=== PATIENT | female | born 1960 | race Caucasian/White ===

== ENCOUNTER 2018-06-09 12:59 | Inpatient (IN) | payer OTHER ==
[~2018-06-09] VITALS: Ht 149.9 cm; Wt 73.7 kg
[2018-06-09 13:35] VITALS: BP 134/70
[2018-06-09 14:58] LABS: HEMATOCRIT 25.8 % (37.0-47.0); MCH 23.3 pg (26.0-34.0); MCHC 31.1 g/dL (28.0-37.0); MCV 74.8 fL (80.0-100.0); PLATELET COUNT 624 thou/uL (150-400); RBC 3.45 mil/uL (4.20-5.00); RDW 18.5 % (10.5-14.5); WBC 12.6 thou/uL (4.0-11.0)
[2018-06-09 15:04] LABS: CALCIUM 9.8 mg/dL (8.5-10.1); CREATININE 1.3 mg/dL (0.6-1.0); POTASSIUM 5.1 mmol/L (3.5-5.1)
[2018-06-09 15:10] LABS: ALBUMIN 1.5 g/dL (3.4-5.0); TOTAL BILIRUBIN 0.2 mg/dL (<0.1-1.0); TOTAL PROTEIN 8.9 g/dL (6.4-8.2)
[2018-06-09 15:25] LABS: ABSOLUTE NEUTROPHILS 8.9 thou/uL (1.4-8.2); METAMYELOCYTES 1 %; MYELOCYTES 3 %; PROMYELOCYTES 1 %
[2018-06-09 15:26] LABS: ANISOCYTOSIS 2+; HYPOCHROMASIA 1+
[2018-06-09] MEDS ORDERED: ASPIRIN325 PO (15:42)
[2018-06-09] MEDS ORDERED: BENADRYL25 MG PO (15:42)
[2018-06-09] MEDS ORDERED: GLUCOTROL5 MG PO (15:43)
[2018-06-09] MEDS ORDERED: GLUCOPHAGE XR500 MG PO (15:44)
[2018-06-09] MEDS ORDERED: GEMFIBROZIL 60600 MG PO (15:44)
[2018-06-09] MEDS ORDERED: LISINOPRIL10 MG PO (15:45)
[2018-06-09] MEDS ORDERED: TYLENOL EXTRA500 MG PO (15:45)
[2018-06-09 17:53] VITALS: BP 134/70
[2018-06-09 18:29] VITALS: BP 142/52
[2018-06-09 18:34] VITALS: BP 128/58
[2018-06-09 19:55] VITALS: BP 120/56
[2018-06-09] MEDS ORDERED: ASPIR 8181 MG PO (21:04)
[2018-06-10] VITALS: BP 127/60
[2018-06-10 03:43] VITALS: BP 102/64
--- NOTE | 2018-06-10 04:29 | NUR ---
ASSUMED PT CARE AROUND 1900. PT ADMITTED FROM ER SOON BEFORE SHIFT CHANGE. ADMISSION HX AND ASSESSMENT COMPLETED CHARTED. A&OX4. VERY PLEASANT AND COOPERATIVE. DENIES ANY PAIN. PT STATED SHE HAS CHRONIC NUMBNESS AND POOR SENSATION IN BILAT FEET. LEFT FOOT WOUND CLEANED WITH SALINE. NEW DRESSSING APPLIED TO WOUND. LEFT LE ELEVATED ON PILLOW. PT WAS FEBRILE AT BEGINNING OF SHIFT. 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 TYLENOL GIVEN. FEVER RESOLVED. VSS. PT SLEPT MOST OF THE NIGHT. CALLS OUT APPROPRIATELY. UP W/ ASSIST TO BSC. FALL PRECAUTIONS IN PLACE. NPO AFTER MIDNIGHT FOR SURGERY TODAY FOR LEFT BKA. PT IS IN GOOD SPIRITS AND STATES SHE HAS ACCEPTED THE FACT THAT SHE WILL HAVE AN AMPUTATION. FALL PRECAUTIONS IN PLACE. PROGRESSING SLOWLY TOWARD POC GOALS. WILL CONTINUE TO MONITOR FURTHER.
[2018-06-10 06:35] LABS: HEMATOCRIT 20.6 % (37.0-47.0); HEMOGLOBIN 6.5 gm/dL (12.0-15.0); MCH 23.9 pg (26.0-34.0); MCHC 31.7 g/dL (28.0-37.0); MCV 75.5 fL (80.0-100.0); RBC 2.73 mil/uL (4.20-5.00); RDW 18.5 % (10.5-14.5); WBC 10.8 thou/uL (4.0-11.0)
[2018-06-10 06:36] LABS: PLATELET COUNT 426 thou/uL (150-400)
[2018-06-10 06:40] LABS: CALCIUM 8.7 mg/dL (8.5-10.1); CREATININE 1.1 mg/dL (0.6-1.0); MAGNESIUM 1.6 mg/dL (1.8-2.4); POTASSIUM 4.4 mmol/L (3.5-5.1)
[2018-06-10 07:20] VITALS: BP 96/59
[2018-06-10 08:01] LABS: ABSOLUTE NEUTROPHILS 7.8 thou/uL (1.4-8.2); METAMYELOCYTES 3 %; MYELOCYTES 1 %
[2018-06-10 08:03] LABS: ANISOCYTOSIS 2+; HYPOCHROMASIA 1+
[2018-06-10 08:53] VITALS: BP 91/39
--- NOTE | 2018-06-10 09:05 | NUR ---
RECEIVED ORDERS FOR PT EVAL AND TREAT. PLAN IS FOR Pt TO HAVE L BKA. Pt TO BE ON HOLD FOR PT UNTIL AFTER SURGICAL INTERVENTION. WILL NEED UPDATED PT ORDERS S/P SURGERY.
--- NOTE | 2018-06-10 13:20 | NUR ---
ASSUMED CARE OF PT AT 0700 THIS SHIFT. PT HAS BEEN COOPERATIVE, WENT IN FOR SCHEDULED BKA SURGERY THIS MORNING. PT'S PAIN IS IN CONTROL, PT RATING PAIN 2-3, PT HAS ADVANCED DIABETIC NEUROPATHY. PT TOLERATED SURGERY WELL, CURRETLY AWAKE, RESTING COMFORTABLY IN ROOM. PT'S FOOT DRESSING IS NOT TO BE TOUCHED UNTILL FURTHER ORDERS. ASSESSMENTS ARE DOCUMENTED, EDUCATION WAS PROVIDED. PT HAS NOT HAD VISITORS THIS SHIFT AT THIS TIME, EDUCATION WAS PROVIDED. PLAN OF CARE IS TO CONTINEU TO MONITOR PT CLOSELY.
--- NOTE | 2018-06-10 15:04 | NUR ---
ASSESSMENT: CM REVIEWED CHART AND MET WITH PATIENT AT THE BEDSIDE. PT WAS ADMITTED WITH OSTEOMYELITIS OF THE LEFT FOOT. PT IS TO HAVE BKA TODAY. PT REPORTS THAT SHE LIVES IN HER OWN HOUSE BUT STATES SHE IS GOING TO GO STAY AT HER MOMS HOUSE WHEN SHE IS ABLE TO LEAVE THE HOSPITAL. PT REPORTS SHE WILL HAVE ABOUT 4 STEPS WITH HANDRAILS TO ENTER THE HOME. PT REPORTS SHE HAS NOT HAD HH IN THE PAST. PT STATES SHE DOES NOT HAVE HER OWN CANE OR WALKER BUT STATES HER MOTHER HAS EXTRA ONES AT HER HOUSE. CM DISCUSSED ROLE. PT HAD BKA TODAY AND THEN WILL LIKELY WORK WITH THERAPY SOON. CM WILL CONTINUE TO FOLLOW TO ASSIST NEEDED.
[2018-06-10 16:17] VITALS: BP 121/63
--- NOTE | 2018-06-10 17:19 | NUR ---
WOUND CONSULT: PT. WAS SEEN TODAY BY DR. IYER AND MYSELF. PT. WENT TO SURGERY TODAY AND HAD AN LEFT BKA TODAY. PLAN FOR PT. TO RETURN TO THE OR IN A FEW DAYS FOR ANOTHER CLEAN OUT. LEAVE SURGICAL DRESSING IN PLACE AT THIS TIME. PT. ALSO HAS A SMALL ULCER TO HER RIGHT FOOT 2ND TOE. RECOMMENDATIONS: LEAVE SURGICAL DRESSING IN PLACE ON LEFT BKA, PAINT RIGHT FOOT 2ND TOE WITH BETADINE AND LEAVE OPEN TO AIR. PT. AND STAFF NURSE WERE INSTRUCTED ON PLAN OF CARE.
[2018-06-10 20:11] VITALS: BP 110/58
--- NOTE | 2018-06-11 04:47 | NUR ---
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 RESTED WELL THROUGHOUT HOURLY ROUNDS.
[2018-06-11 04:50] VITALS: BP 125/67
[2018-06-11 05:27] LABS: HEMATOCRIT 24.8 % (37.0-47.0)
[2018-06-11 05:43] LABS: POTASSIUM 4.5 mmol/L (3.5-5.1)
[2018-06-11 07:09] LABS: GLYCOHEMOGLOBIN (HGB A1C) 16.5 % (4.8-5.6)
[2018-06-11 07:16] VITALS: BP 122/80
--- NOTE | 2018-06-11 09:08 | HC ---
[facility] [place] [address] CONSULTATION Name: VAN IBARRA Room #: 357-P ADM IN M.R.#: [id number] Admission: 06/09/18 ������������������ Attend Phys: Carter Guzman MD Discharge: ������������������ Date of : 62 Report #: [id number] THIS REPORT FOR: //name// CC: [facility] physician/PCP Carter Guzman DATE OF SERVICE: 06/10/2018 HISTORY OF PRESENT ILLNESS: A 58-year-old white woman admitted with left diabetic foot infection, undergoes left BKA by Dr. Titus Bucio. The wound is left open today. The dressing to be removed on Thursday and decision as to whether she could have wound closed on Thursday or AKA done on Thursday will be decided upon findings from cultures and clinical findings on Thursday or Thursday. PAST MEDICAL HISTORY: Diabetes mellitus for many years. Diabetic neuropathy. Osteomyelitis, left foot. DRUG ALLERGIES: PENICILLIN. MEDICATIONS: The patient is currently on treatment with Cleocin single dose. Vancomycin loading dose, meropenem 500 IV every 8 hours, insulin lispro per sliding scale, p.r.n. glucose glucagon, p.r.n. acetaminophen and pain medications. Receiving normal saline IV. SOCIAL HISTORY: See H and P, old records. FAMILY HISTORY: See H and P, old records. REVIEW OF SYSTEMS: Some pain in left lower extremity, status post recent BKA and the patient evaluated in the recovery room. PHYSICAL EXAMINATION: GENERAL AND VITAL SIGNS: A well-developed woman, not toxic looking presenting with following vital signs: Temperature maximum 102.2, 06/09/2018 at 1834 hours. Temperature 97.8, pulse 77, respirations 16, BP 91/39 early today. The patient is on room air saturation 100%. HEENMT: Pupils reactive. Mouth normal. NECK: Supple, no thyromegaly. BREASTS: Deferred. LUNGS: Clear. HEART: S1, S2. No gallop or murmur. ABDOMEN: Soft, no masses or megaly. PELVIC AND RECTAL: Deferred. EXTREMITIES: Left BKA dressing is not removed. NEUROLOGIC: Grossly within normal limits. [facility] [address] [place] [address] CONSULTATION Name: VAN IBARRA Room #: 357-P [facility] IN M.R.#: [id number] Admission: 06/09/18 ������������������ Attend Phys: Carter Guzman MD Discharge: ������������������ Date of : 62 Report #: [id number] LABORATORY DATA: Sodium 130; potassium 4.4; BUN 16; creatinine 1.3 on admission, 1.1 today; glucose 134; magnesium low at 1.6; alkaline phosphatase elevated at 160; albumin is extremely low 1.5 g/dL. C-reactive protein 312.4 mg/dL. WBC on admission 12.6, hemoglobin from 8 g/dL down to 6.5 g/dL with low MCV. MCH either reflecting iron deficiency or thalassemia. Platelet count 426,000. ESR greater than 150 mg/dL. MICROBIOLOGY DATA: One blood culture out of two samples obtained yesterday revealing Gram-positive cocci. Foot and leg cultures are all pending at the time of this dictation. RADIOLOGY EVALUATION: X-ray of the foot revealed gas in soft tissue, possible fasciitis. ASSESSMENT: 1. Left diabetic foot infection status post left below-knee amputation. 2. Gram-positive cocci bacteremia, possibly secondary to above. 3. Diabetes mellitus. 4. Severe hypoalbuminemia. 5. Hypomagnesemia. SUGGESTIONS: Recommend continued treatment with meropenem 500 mg IV every 8 hours. We will continue vancomycin to be dosed by pharmacy and final determination of antibiotic regimen pending culture result. Discuss situation with Dr. Titus Bucio. The patient may yet require AKA. Dr. Guzman, thank you for requesting my suggestions. ��������������������������������������������� <ELECTRONICALLY SIGNED> ���������������������������������������� By: Deandre Tapia MD ��������������������������������������������� 06/11/18 0908 [id number] Deandre Tapia MD /nt
--- NOTE | 2018-06-11 09:48 | O ---
[facility] [place] [address] OPERATIVE REPORT Name: VAN IBARRA Room #: 357-P ADM IN M.R.#: [id number] Admission: 06/09/18 ������������������ Attend Phys: Carter Guzman MD Discharge: ������������������ Date of : 62 Report #: [id number] THIS REPORT FOR: //name// CC: [facility] physician/PCP Carter Guzman DATE OF SERVICE: 06/10/2018 INDICATIONS: This 58-year-old female with chronic diabetes and vascular disease presents with a gangrenous left foot. We have elected to go ahead with a below-knee amputation. The clinical appearance of the leg and calf looks satisfactory with only mild edema, but no redness or warmth and not much discomfort in that region. There is clear infection involving the foot extending up to the ankle and clearly amputation is necessary. I have discussed this at some length with the patient as did my partner, Dr. Shah. The patient wishes to go ahead with below-knee amputation at this time. DESCRIPTION OF PROCEDURE: The patient was taken to the operating room where she was continued on her chronic antibiotic regimen. The left lower extremity was carefully prepped and draped excluding the ankle and foot with occlusive dressings to keep them out of the field. The leg was prepped from the mid thigh down to the ankle level. The limb was exsanguinated with an Esmarch bandage. A thigh tourniquet was then inflated to 300 mmHg. A fishmouth shaped skin incision was then made at the mid tibia for an appropriate level below-knee amputation. The skin appears healthy and well perfused as is the subcutaneous tissue; however, there is moderate subcutaneous adipose tissue and there appeared to be some serosanguineous or possibly seropurulent material in the anterior and anterolateral compartments. I am concerned that the amputation level may be contaminated and was therefore concerned about wound closure and considered possibly moving to a higher level. However, the muscle appears to be well perfused. There is no necrotic debris. The skin edges look good. When I subsequently let the tourniquet down, she had excellent arterial bleeding throughout all compartments. Given this, I was reluctant to move to an above-knee amputation at this point before discussing the issue with the patient. Nevertheless, I was concerned that wound closure might result in ongoing infection at this level, therefore I felt the best option was to complete the amputation at this level, irrigating and cleaning and debriding the wound appropriately and then probably leave the wound open for later return to the operating room. Given this consideration, the soft tissues were incised at an appropriate level creating a good fishmouth shaped closure with a posterior flap. The tibia and fibula were transected with an oscillating saw and contoured appropriately. The amputation was completed and the lower leg was passed off the field. A culture was taken of the serosanguineous brownish fluid in the anterolateral compartment and we will see whether this has evidence of infection at that level. The wound [address] [address] OPERATIVE REPORT Name: ANA MARIA IBARRAN Room #: 357-P ADM IN M.R.#: [id number] Admission: 06/09/18 ������������������ Attend Phys: Carter Guzman MD Discharge: ������������������ Date of : 62 Report #: [id number] was then aggressively irrigated and washed and then all the materials at that point were passed off the field and a new clean field was established. The tourniquet was deflated and good hemostasis was established with silk ties. The wound was further irrigated and seemed to be reasonably dry. The skin edges seemed to be adequately perfused and the muscle seems viable. Nevertheless, I was still concerned about wound closure at this point. Instead, I elected to dress the wound open with multiple gauze soaked in antibiotic solution and then a very gently but firm compressive dressing was applied. The patient was then awakened and returned to recovery room in good condition. I will anticipate we will need to return to the operating room in several days for repeat inspection and consideration of closure. ��������������������������������������������� <ELECTRONICALLY SIGNED> ���������������������������������������� By: Titus Bucio MD ��������������������������������������������� 06/11/18 0948 [id number] 1305 Titus Bucio MD /sheryl
[2018-06-11 11:22] VITALS: BP 109/70
--- NOTE | 2018-06-11 12:36 | NUR ---
ON-GOING ASSESSMENT: CM REVIEWED CHART AND SPOKE WITH ATTENDING. PT HAD BKA YESTERDAY AND PLANS ARE FOR PATIENT TO GO BACK TO THE OR ON THURSDAY FOR WOUND INSPECTION AND POSSIBLE CLOSURE. 5N IS FOLLOWING PATIENT PATIENT WILL LIKELY HAVE A NEED FOR ACUTE REHAB. CM WILL CONTINUE TO FOLLOW TO ASSIST NEEDED.
--- NOTE | 2018-06-11 14:43 | NUR ---
PATIENT SEEN BY NANNETTE DIAZ NP WITH DR. MARTINEZ. PATIENT WILL MEET CRITERIA FOR ACUTE REHAB. ANTICIPATE FURTHER SURGERY OVER THE WEEKEND. WILL REASSESS PATIENT STATUS ON THURSDAY AND SUBMIT FOR AUTHORIZATION FOR ACUTE REHAB WHEN PATIENT IS MEDICALLY STABLE.
[2018-06-11 15:38] VITALS: BP 105/65
--- NOTE | 2018-06-11 16:23 | NUR ---
AAAOX4 PLEASANT AND COOPERATIVE. GOOD PAIN RELIEF WITH MORPHINE AND NORCO. GOOD APPETITE. WORKED WITH PT UP TO BSC WITH MIN ASSIST. VOIDED YELLOW URINE. LEFT BKA DRESSING DRY AND INTACT. IV RIGHT HAND. ON ROOM AIR LUNGS CLEAR. FAMILY HERE FOR A VISIT.
[2018-06-11 19:44] VITALS: BP 125/67
--- NOTE | 2018-06-12 03:21 | NUR ---
PATIENT IS ADVANCING IN HER CARE PLAN. VITAL SIGNS STABLE WITH PATIENT HAVING NO COMPLAINTS OF NAUSEA. PATIENT DID COMPLAIN OF PAIN FREQUENTLY WHICH WAS TREATED EFFECTIVELY WITH PRN MEDICATION AND NON PHARMACOLOGICAL INTERVENTION. FULLY ORIENTED, PATIENT IS ABLE TO PARTICIPATE IN CARE PLAN AND CALLS APPROPRIATELY FOR REQUESTS. POST OP SITE ASSESSED FREQUENTLY WITH BANDAGE APPEARING INTACT WITH MINIMAL DRAINAGE. PATIENT UP TO BEDSIDE COMMODE FREQUENTLY WITH ASSISTANCE INCIDENT FREE. CONTINUE PLAN OF CARE.
--- NOTE | 2018-06-12 03:58 | NUR ---
ASSUMED PATIENT CARE AT 1845. PATEINT IS ALERT AND ORIENTED X4. PATIENT IS A HIGH FALL RISK DUE TO ADMITTING DIAGNOSIS, LLE BKA, MEDINA FALL SCORE. SHE HAS PAIN RELATED TO LLE BKA WHICH OCCURRED ON 06/10/18. NURSE ADMINISTERED HYDROCODONE Q4 AT 2215 AND 0220 PER PATIENTS DESCRIBED NUMERIC PAIN SCORE. PATIENT HAS IMPAIRED SKIN INTEGRITY TO 2ND GREAT TOE ON R FOOT, AND AT RISK FOR FURTHER IMPAIRED SKIN INGERITY RELATED TO POOR CHOICES WITH HER COMPLIANCE OF HER DIABETES REGIMEN. NURSE ADMINISTERED INSULIN FOR FSBG IN 200'S. PATIENT IS PLEASANT AND COOPERATIVE WITH CARE.
[2018-06-12 04:30] VITALS: BP 111/76
[2018-06-12 06:59] VITALS: BP 129/72
[2018-06-12 12:19] VITALS: BP 125/76
[2018-06-12 15:56] VITALS: BP 126/66
--- NOTE | 2018-06-12 17:35 | NUR ---
Assumed care of Pt at 0700. Pt alert and oriented, pleasant, denies pain. breathing comfortably on room air. saturated bka dressing noted. sent to OR for leg wound irrigation and debridement. plans to return to OR in 48 hrs per ortho. transfers self to BSC from bed w/o difficulty. calls out appropriately. pain well controlled on current med regimen. sinus on telemetry. pt progressing toward poc goals.
[2018-06-12 19:09] VITALS: BP 103/56
[2018-06-13] VITALS (8 sets, daily range): BP systolic 94–145; BP diastolic 57–75
--- NOTE | 2018-06-13 05:32 | NUR ---
ASSUMED PATIENT CARE AT 1845. PATIENT IS PROGRESSING IN CARE. SHE IS ABLE TO AMBULATE TO THE [facility] WITH SBA. PATIENT DOES REMAIN A HIGH FALL RISK DUE TO ADMITTING DIAGNOSIS, LT BKA, AND MEDINA FALL SCORE. HER CONCERNS ARE CONSTIPATION AND PAIN. SHE IS PASSING FLATULENCE AND HAS ACTIVE BOWEL SOUNDS. NURSE ADMINISTERED HYDROCODONE AT 0000 AND 0400 FOR PAIN. PATIENT DOES HAVE IMPAIRED SKIN INTEGRITY TO RT FOOT 2ND TOE AND LT BKA WHICH REQUIRE FURTHER MONITORING. PATIENT IS PLEASANT AND COOPERATIVE WITH CARE. PLAN IS FOR HER TO GO TO 5N ONCE MEDICALLY CLEARED.
--- NOTE | 2018-06-13 05:33 | NUR ---
PATIENT IS PROGRESSING IN HER CARE PLAN. VITAL SIGNS STABLE WITH PATIENT HAVING NO COMPLAINTS OF NAUSEA. PATIENT DID FREQUENTLY COMPLAIN OF PAIN IN LEFT STUMP WHICH WAS TREATED EFFECTIVELY WITH MEDICATION AND REPOSITIONING. SURGICAL SITE FREQUENTLY MONITORED WITH MINIMAL OUTPUT NOTED. PATIENT IS ALERT AND ORIENTED AND ABLE TO CALL APPROPRIATELY FOR NEEDS. UP MULTIPLE TIMES TO BEDSIDE COMMODE WITH ASSISTANCE INCIDENT FREE. CONTINUE PLAN OF CARE.
--- NOTE | 2018-06-13 07:57 | O ---
[facility] [place] [address] OPERATIVE REPORT Name: VAN IBARRA Room #: 357-P ADM IN M.R.#: [id number] Admission: 06/09/18 ������������������ Attend Phys: Carter Guzman MD Discharge: ������������������ Date of : 62 Report #: [id number] THIS REPORT FOR: //name// CC: [facility] physician/PCP Carter Guzman DATE OF SERVICE: 06/12/2018 PREOPERATIVE DIAGNOSIS: Infected left below knee amputation. POSTOPERATIVE DIAGNOSIS: Infected left below knee amputation. PROCEDURE: Dressing change with irrigation and debridement of left below knee amputation stump. SURGEON: Titus Bucio MD INDICATIONS: This 58-year-old female developed a severe progressive infection in the left lower extremity primarily involving the foot and ankle. A below knee amputation was performed 48 hours ago. At that time, the perfusion looked good, the skin edges looked good, there was no evidence of ischemia or necrosis of the muscle or other soft tissues at the below knee amputation site. There was, however, some serosanguineous fluid which was suspicious for purulence; therefore, I elected not to close the wound and dress the wound open. Gram stain from that specimen does show some gram-positive cocci suggesting there was at least some bacterial contamination. We are bringing the patient back at this time for dressing change to determine whether we might be able to close the wound at this level or may need a higher level amputation. DESCRIPTION OF PROCEDURE: The patient was taken to the operating room where she was placed under general anesthesia. She is continued on her current antibiotic regimen. The dressing was removed from the left below knee amputation site and the wound and surrounding skin was appropriately prepped using gentle Betadine prep. No tourniquet was required. The soft tissues actually looked quite good. The muscle and subcutaneous tissues were all very well perfused. A few small bleeders were identified and cauterized. The other larger bleeders were stable and there was no evidence of any new bleeding in any area. There was no evidence of purulence. There was no fluid accumulation. No other problems were identified which would suggest significant progressive infection or soft tissue necrosis at this level. Nevertheless, I felt it was too soon to go ahead with wound closure. The wound was aggressively irrigated with antibiotic solution and then once again gently closed with simple soft tissue dressing using gauze, soft roll and Dc wrap. The patient was awakened and returned to recovery room in good condition. [address] [address] OPERATIVE REPORT Name: VAN IBARRA Room #: 357-P [facility] IN M.R.#: [id number] Admission: 06/09/18 ������������������ Attend Phys: Carter Guzman MD Discharge: ������������������ Date of : 62 Report #: [id number] would anticipate return to the operating room in another 48 hours for repeat inspection and possible wound closure. ��������������������������������������������� <ELECTRONICALLY SIGNED> ���������������������������������������� By: Titus Bucio MD ��������������������������������������������� 06/13/18 0757 1127 1340 Titus Bucio MD /sheryl
--- NOTE | 2018-06-13 10:12 | NUR ---
PATIENT BEING BATHE BY LOOP TACKER AND FELL, UNWITNESSED FALL BY NURSE, WILL FOLLOW APPROPRIATE PROTOCOL. DR. CARDONA, PAGED. SPOKE WITH DR. EID ABOUT LEFT AKA, HE STATED TO LEAVE DRESSING INTACT, NO SIGNS OF BLEEDING.
--- NOTE | 2018-06-13 10:52 | NUR ---
DR. CARDONA PRESENT AT THE BEDSIDE FOR POST-FALL ASSESSMENT, PATIENT ALERT AND ORIENTED X4, MILD PAIN TO LEFT SURGICAL SITE. NEUROLOGICALLY INTACT. NO SIGNS OF ACUTE DISTRESS NOTED AT THIS TIME. WILL CONTINUE TO MONITOR.
[2018-06-14] VITALS (17 sets, daily range): BP systolic 112–165; BP diastolic 59–88
--- NOTE | 2018-06-14 00:56 | NUR ---
Assumed care at 1845. Pt resting in bed. AOX4. On room air. Dressing on L BKA saturated Dr Bucio aware doesnt want it to be redressed. Pain under control with current meds. Pt is able to transfer to BS with minimum assistance. She is running SR on TELE. Has been NPO since midnight for possible full closure of the surgical site. Consent signed. No identified needs at the moment. Will continue to monitor.
[2018-06-14 05:14] LABS: HEMATOCRIT 24.1 % (37.0-47.0); HEMOGLOBIN 7.7 gm/dL (12.0-15.0); MCH 24.7 pg (26.0-34.0); MCHC 31.8 g/dL (28.0-37.0); MCV 77.8 fL (80.0-100.0); RBC 3.1 mil/uL (4.20-5.00); RDW 19.2 % (10.5-14.5); WBC 8.3 thou/uL (4.0-11.0)
[2018-06-14 05:26] LABS: CALCIUM 7.5 mg/dL (8.5-10.1); CREATININE 0.8 mg/dL (0.6-1.0); MAGNESIUM 1.9 mg/dL (1.8-2.4); POTASSIUM 4.2 mmol/L (3.5-5.1)
--- NOTE | 2018-06-14 07:34 | HC ---
[facility] [place] [address] CONSULTATION Name: VAN IBARRA Room #: 357-P ADM IN M.R.#: [id number] Admission: 06/09/18 ������������������ Attend Phys: Carter Guzman MD Discharge: ������������������ Date of : 62 Report #: [id number] THIS REPORT FOR: //name// CC: [facility] physician/PCP Carter Guzman DATE OF SERVICE: 06/10/2018 CHIEF COMPLAINT: Diabetic foot ulceration of the left foot. HISTORY OF PRESENT ILLNESS: This is a 58-year-old female patient who was admitted to the Emergency Department after developing a severe infection of the left foot. She was found to have underlying osteomyelitis and it was felt that her foot was not salvageable and she has undergone below-knee amputation earlier today. There was some evidence of infection at the amputation site and the wounds have been left open. There are plans to return to the operating room in a few days to perform secondary closure. The patient is seen in the room. She states that she is feeling relatively well and has accepted the amputation and is looking forward to recovery and moving on. She denies other significant complaints at this time. PAST MEDICAL HISTORY: The patient's past medical history is positive for a history of diabetes mellitus with poor glycemic control, diabetic neuropathy, osteomyelitis of the foot and recent below-knee amputation. MEDICATIONS: Include Benadryl, Glucotrol, Glucophage, Zestril, aspirin, gemfibrozil and Tylenol. ALLERGIES: PENICILLIN. SOCIAL HISTORY: The patient is a current daily smoker, negative for alcohol use. FAMILY HISTORY: Positive for diabetes and hypertension. REVIEW OF SYSTEMS: CONSTITUTIONAL: The patient denies fever, chills or weight loss. NEUROLOGIC: The patient denies focal weakness, but does have numbness and tingling with neuropathy of her lower extremities. ENT: The patient denies earache, nasal drainage or sore throat. CARDIOVASCULAR: The patient denies chest pain, palpitations or diaphoresis. PULMONARY: The patient denies cough or shortness of breath. GASTROINTESTINAL: The patient denies nausea, vomiting, diarrhea or abdominal pain. ORTHOPEDIC: The patient has some pain at her postoperative site. Denies pain on the opposite side. The patient's other systems in the 14-point review of [address] [address] CONSULTATION Name: VAN IBARRA Room #: 357- ADM IN .R.#: [id number] Admission: 06/09/18 ������������������ Attend Phys: Carter Guzman MD Discharge: ������������������ Date of : 62 Report #: [id number] systems are negative. PHYSICAL EXAMINATION: VITAL SIGNS: Include temperature 36.6, pulse 75, respiratory rate 18 and blood pressure 121/63. GENERAL: This is a well-developed female patient, who appears to be in minimal distress. HEENT: Examination of the head, normocephalic. Nose and throat are clear. NECK: Supple. LUNGS: Clear to auscultation. ABDOMEN: Soft. Bowel sounds are present. EXTREMITIES: Examination of the lower extremities demonstrates a very small dry ulceration on the dorsal aspect of the right second toe. It is not infected. There is no exposure of any deep structures. Examination of the left leg demonstrates postoperative dressings are intact and have not been taken down at the left below-knee amputation site. CLINICAL IMPRESSION: 1. Diabetic foot infection with underlying osteomyelitis of the left foot, now status post below-knee amputation. 2. Small ulceration of the right second toe. 3. Diabetes mellitus with severe peripheral neuropathy. 4. Hypernatremia. 5. Tobacco use. RECOMMENDATIONS: At this point in time, we will recommend operative dressings per the Orthopedic Service for the time being. We will recommend Betadine paint to the right second toe. Recommend aggressive nutritional support to maximize wound healing and maintain glycemic control. We will follow her while here in the hospital. We will anticipate that she will have secondary closure of her left below-knee amputation site in the next 2 days. I appreciate being asked to see her in consultation. ��������������������������������������������� <ELECTRONICALLY SIGNED> ���������������������������������������� By: Del Alvarez MD ��������������������������������������������� 06/14/18 0734 0745 [id number] Del Alvarez MD /nt
--- NOTE | 2018-06-14 09:20 | NUR ---
pt noted to be taken by pre-op holding x2 staff this am @ 4353. tele off and in room. report from Janel/rn in pacu received @ 4411 w/ sbar.
--- NOTE | 2018-06-14 10:41 | O ---
[facility] [place] [address] OPERATIVE REPORT Name: VAN IBARRA Room #: 357-P ADM IN M.R.#: [id number] Admission: 06/09/18 ������������������ Attend Phys: Carter Guzman MD Discharge: ������������������ Date of : 62 Report #: [id number] THIS REPORT FOR: //name// CC: [facility] physician/PCP Carter Guzman DATE OF SERVICE: 06/14/2018 PREOPERATIVE DIAGNOSIS: Left below knee amputation with infected/contaminated stump. POSTOPERATIVE DIAGNOSIS: Left below knee amputation with infected/contaminated stump. PROCEDURE: Irrigation and debridement and wound closure, left below knee amputation. SURGEON: Titus Bucio MD INDICATIONS: This 58-year-old female presented with a gangrenous infected left foot, which required below-knee amputation. The initial procedure was performed about 4 days ago. At that point, there was some swelling and serosanguineous fluid at the amputation site and we elected to leave the wound open. We have done another dressing change and the skin and muscle appeared to be well perfused and there is no evidence of ongoing purulence. We have elected to go ahead with another debridement today and then possible wound closure. DESCRIPTION OF PROCEDURE: The patient was taken to the operating room where she was placed under general anesthesia. She was continued on her antibiotic regimen. The dressing was removed from the open left below knee amputation site. The wound and surrounding skin were carefully prepped and draped. No tourniquet was required. There was a minor punctate bleeding, but no major bleeding was noted. The muscle seems to be well perfused. The skin and subcutaneous tissues are also well perfused. There was no evidence of ischemia and no evidence of any soft tissue or muscle necrosis. There was no fluid and no purulence. I suspect the wound is still somewhat contaminated, but does not appear to be infected and I think at this point, wound closure over drains is a reasonable option. Very limited debridement was performed to loosen the deeper muscle layer, which had contracted somewhat. The two Hemovac drains were left in the wound exiting through a separate stab incision. The muscle layer and fascia was then closed with running 0 Monocryl. The more superficial fascia and subcutaneous tissues were also closed with 0 Monocryl. The skin was closed with skin luis. There seemed to be a very satisfactory closure without undue tension and once again the subcutaneous tissues and skin appeared to be well perfused and I feel the healing potential is good. At this point, a very [facility] [address] [place] [address] OPERATIVE REPORT Name: VAN IBARRA Room #: 357-P ADM IN M.R.#: [id number] Admission: 06/09/18 ������������������ Attend Phys: Carter Guzman MD Discharge: ������������������ Date of : 62 Report #: [id number] well-padded soft dressing was applied with the addition of several Dc wraps for gentle compression at the distal aspect. The patient was awakened and returned to the recovery room in good condition. ��������������������������������������������� <ELECTRONICALLY SIGNED> ���������������������������������������� By: Titus Bucio MD ��������������������������������������������� 06/14/18 1041 [id number] Titus Bucio MD /nt
--- NOTE | 2018-06-14 11:23 | NUR ---
Nutrition: Pt seen for f/u. S/P L BKA due to diabetic foot ulcer with osteomyelitis. Delayed closure due to infection, closed today. Previously on cc diet, now on clear liquids. States "appetite has always been fine" with 90-100% intake. Communicated understanding of protein needs. Wt per bed scale 164 lbs. 06/09 wt 149 lbs. Current may be inaccurate. Will request updated wt. A1c 16.5 and BG 134-272. Previous assessment showed pt noncompliant, but has good understanding of diet and plans to follow. Had no further questions. Will monitor for timely diet advancement, otherwise low nutrition risk.
--- NOTE | 2018-06-14 14:22 | NUR ---
ON-GOING ASSESSMENT: CM/GEORGES WERE NOTIFIED FROM Cherri WALLACE THAT PT DOES NOT HAVE ACUTE REHAB BENEFITS. CM CONTACTED # LIST FOR PATIENTS INSURANCE [phone] AND SPOKE WITH A REP WHO STATES PATIENT DOES NOT HAVE ANY BENEFITS OTHER THEN ACUTE HOSPITALIZATION. SHE DOES NOT HAVE BENEFITS FOR COVERAGE FOR DME, OUTPATIENT, HH, ACUTE REHAB, OR SNF.
--- NOTE | 2018-06-14 16:11 | NUR ---
GEORGES reviewed chart and spoke with nursing and attending physician. Pt went to OR earlier today for BKA left leg wound inspection debridement and irrigation, Wound closed over drains. GEORGES discussed case with [facility] rehabilitation counsellor, who states pt's insurance only covers hospital room and board. Insurance will not cover post-acute care placement, DME, services, etc. airport planner to fax referral to [facility] to see if pt would qualify for Medicaid. GEORGES discussed case with Director of Case Mgmt. GEORGES updated attending physician. GEORGES is following to assist as needed with discharge planning.
--- NOTE | 2018-06-14 18:05 | PATH ---
[facility] [address] [place] [address] PATHOLOGY RPT PROCEDURE Name: DEBRA RAMIREZ Room #: 357-P ADM IN M.R.#: [id number] ������������������ Admission: 06/09/18 ������������������ Date of : 62 Discharge: Report #: [id number] Path Case #: [id number] [facility] Accession Number: [id number] . 01 Material submitted: . leg - LEFT BELOW KNEE AMPUTATION. Modifiers: left . 01 Clinical history: . Osteomyelitis . 02 Diagnosis: Leg, left, below knee amputation: - Ulceration associated with extensive gangrenous necrosis and marked acute inflammation extending into underlying subcutaneous tissues as well as bone. - Underlying bone showing acute and chronic osteomyelitis along with osteonecrosis. - Anterior and posterior tibial vasculature showing moderate calcific sclerosis with luminal narrowing. - Skin margin viable and unremarkable. - Bone margin grossly viable. (IUV:nahum; 06/14/2018) MBR/06/14/2018 . 02 Electronically signed: . Luisa Neumann MD, Pathologist NPI- [id number] . 01 Gross description: . The specimen is received fresh and a biohazard bag, labeled "Debra Ramirez, left below knee amputation". Received is a left cskgy-neh-epmq amputation measuring 21.9 cm from heel-to-toe, 15.3 cm from heel to proximal skin margin, 28.4 cm from heel to tibial margin, and 29.0 cm from heel to fibular margin. The skin and soft tissue margins are viable. The bone margins are blunt in appearance, consistent with transection. All five toes are present. Toe 1 is slightly pink-purple in appearance over the dorsal and distal aspect of the toe. On the plantar aspect of toe 1 extending down onto the plantar surface of the foot and onto the medial/dorsal aspect of the foot, there is a poorly circumscribed, irregular in contour, pink-martinez to brown-black necrotic-appearing lesion measuring 7.2 x 6.2 cm in greatest dimensions. On the plantar aspect of the foot on toe 1, bone is visible. On the plantar aspect of toe 2, there is a secondary lesion which is well-circumscribed, flat and light brown lesion measuring 0.9 x 0.6 cm. 2.4 cm proximal to the primary lesion surrounding toe 1, there is a tertiary lesion which is well-circumscribed, irregular in contour and pink-martinez measuring 3.2 x 2.5 cm. Overlying the medial malleolus and extending outward, there is a quaternary lesion which [address] [address] PATHOLOGY RPT PROCEDURE Name: DEBRA RAMIREZ Room #: 357-P ADM IN M.R.#: [id number] ������������������ Admission: 06/09/18 ������������������ Date of : 62 Discharge: Report #: [id number] Path Case #: [id number] is well-circumscribed, irregular in contour and pink-martinez to necrotic in appearance, with exudate oozing out, measuring 8.4 x 6.8 cm, which is 7.2 cm from the closest skin margin. Sectioning through the anterior and posterior tibial vasculatures reveal patent and slightly calcified lumens. The specimen is submitted representatively as follows: . A1 skin and soft tissue margin, and front office representative sections from primary and secondary lesions on toes 1 and 2 A2 front office representative sections of bone underlying primary lesion on toe 1, following decalcification A3 front office representative sections of tertiary lesion on medial aspect between lesions 1 and 3 A4 front office representative sections of quaternary lesion overlying medial malleolus A5 front office representative sections of bone underlying quaternary lesion, following decalcification A6 anterior and posterior tibial vasculatures. (CAA; 06/11/2018) QAC/QAC . 02 Pathologist provided ICD-10: M86.162, M86.662, M87.862 . 02 CPT . 365519, [id number] Specimen Comment: A courtesy copy of this report has been sent to Specimen Comment: [phone], . Specimen Comment: Report sent to / DR CARDONA Performed at: 01 [facility] [address], [place] [id number] MD Moisés Mattson MD Phone: [phone] Performed at: [address] [id number] MD Luisa Neumann MD Phone: [phone]
[2018-06-15 00:09] VITALS: BP 136/76
--- NOTE | 2018-06-15 03:53 | NUR ---
ASSUMED PT CARE AROUND 1900. A&OX4. C/O PAIN IN LEFT LEG/STUMP. PAIN MEDICATION GIVEN INDICATED WITH SOME RELIEF. LLE ELEVATED ON PILLOW TO HELP WITH SWELLING. LEFT STUMP DRESSING C/D/I; HEMOVAC IN PLACE. PT IS ABLE TO HELP REPOSITION SELF IN BED. IVF INFUSING ORDERED. VOIDING WELL PER BEDPAN. FALL PRECAUTIONS IN PLACE. PROGRESSING SLOWLY TOWARD POC GOALS.
[2018-06-15 04:03] VITALS: BP 135/88
[2018-06-15 05:35] LABS: HEMATOCRIT 22.8 % (37.0-47.0); HEMOGLOBIN 7.4 gm/dL (12.0-15.0)
[2018-06-15 05:41] LABS: POTASSIUM 4.3 mmol/L (3.5-5.1)
[2018-06-15 07:25] VITALS: BP 123/66
[2018-06-15 11:21] VITALS: BP 112/64
--- NOTE | 2018-06-15 12:40 | NUR ---
WOUND FOLLOW UP: PT. WAS SEEN TODAY BY DR. IYER AND MYSELF. PT. IS ONE DAY POST OP LEFT BKA REVISION. SURGICAL DRESSING IS C/D/I AT THIS TIME. HEMOVAC IS WORKING WELL. SURGICAL DRESSING WAS NOT REMOVED TODAY. WOUND TO 2ND TOE RIGHT FOOT REMAINS DRY AND STABLE. RECOMMENDATIONS: CONTINUE WITH CURRENT PLAN OF CARE. PT.AND STAFF NURSE WERE INSTRUCTED ON PLAN OF CARE.
--- NOTE | 2018-06-15 15:27 | NUR ---
GEORGES reviewed chart and spoke with nursing and attending physician. Pt is progressing towards goals for discharge. Discharge to [facility] is anticipated for tomorrow. Pt's insurance does not provide coverage for post-acute placement or needs. GEORGES informed pt that is taking her as jonah. GEORGES discussed meeting with [facility] to determine if pt would qualify for Medicaid. Pt is agreeable to meet with [facility]. Pt states that she will be staying with her parents once discharged from 5. Pt's parents have walkers and a w/c for pt to use. Pt agreeable with discharge plan to [facility] tomorrow. GEORGES is following to assist as needed with discharge planning.
[2018-06-15 16:09] VITALS: BP 120/68
[2018-06-15 19:13] VITALS: BP 113/56
[2018-06-16 02:57] VITALS: BP 134/67
[2018-06-16 05:34] LABS: HEMATOCRIT 22.9 % (37.0-47.0); HEMOGLOBIN 7.2 gm/dL (12.0-15.0); MCH 24.6 pg (26.0-34.0); MCHC 31.5 g/dL (28.0-37.0); MCV 78.1 fL (80.0-100.0); RBC 2.94 mil/uL (4.20-5.00); WBC 6.1 thou/uL (4.0-11.0)
[2018-06-16 07:21] VITALS: BP 128/65
[2018-06-16] MEDS ORDERED: VANCO 750750 MG/150 IV (11:34)
[2018-06-16] MEDS ORDERED: MERREM 500500 MG/12 IV (11:34)
[2018-06-16 11:56] VITALS: BP 102/51
--- NOTE | 2018-06-16 13:10 | NUR ---
WOUND FOLLOW UP: PT. WAS SEEN TODAY BY DR. IYER AND MYSELF. PT. SURGICAL DRESSING IS STILL C/D/I AT THIS TIME. DRAINS HAVE BEEN REMOVED. WOUND TO RIGHT FOOT 2ND TOE HAS RESOLVED. RECOMMENDATIONS: CONTINUE WITH CURRENT PLAN OF CARE. PT. AND STAFF NURSE WERE INSTRUCTED ON PLAN OF CARE.
--- NOTE | 2018-06-16 14:35 | NUR ---
DISCHARGE NOTE: SW reviewed chart and spoke with nursing and attending physician. Pt is medically stable for discharge to 5N today. Pt to be moved to 5N this afternoon. Pt is aware and in agreement with discharge. Rehab CM to follow and assist as needed with discharge planning.
--- NOTE | 2018-06-16 16:16 | NUR ---
Assumed care of patient at 0700. Vitals have been stable. Patient alert and oriented x4, pleasant. Positive attitude. Complaints of pain to left lower extremity / BKA. Pain controlled with 2 tabs PRN [place]. Patient up with SBA, gait belt and walker. Up in chair with therapy today. Up to BSC with assistance. Adequate urine output. Fall precautions in place. IVF and IV antibiotics as ordered. Spoke with Dr. Bucio regarding DC drain order - physician says should be able to pull drain, as it is not sutured, without removing dressing. Able to pull drain without issues, patient tolerated well. Very minimal output in Hemovac drain. Dressing to left BKA remains C/D/I. Per Dr. Bucio's note, to change dressing in 24-48 hours. Discharge orders received to DC to [address] [place] [address] rehab. Report called to Flory. IV in left AC still intact for continued IV antibiotics. Telemetry removed. Belongings gathered. Transported to [facility] on [address] [place] [address] via wheelchair with volunteer.
== END 2018-06-16 16:23 | DRG 853 ==
LOC: ER 12:59 → EROBS 15:55 → 3W 15:55 → ENTRNSPT 06-16 16:00 → 3W 06-16 16:23
PROVIDERS: Hospitalist; Orthopaedic Surgery; Physician Assistant; ADMIT Internal Medicine
PROC: 30233N1 Transfusion of Nonautologous Red Blood Cells into Peripheral Vein, Percutaneous Approach (ICD-10-PCS; principal; 2018-06-10)
PROC: 0Y6J0Z1 Detachment at Left Lower Leg, High, Open Approach (ICD-10-PCS; principal; 2018-06-10)
PROC: 3E10X8Z Irrigation of Skin and Mucous Membranes using Irrigating Substance (ICD-10-PCS; 2018-06-12)
PROC: 0KBT0ZZ Excision of Left Lower Leg Muscle, Open Approach (ICD-10-PCS; 2018-06-14)
DX: A41.9 Sepsis, unspecified organism (principal); E43 Unspecified severe protein-calorie malnutrition; M86.8X7 Other osteomyelitis, ankle and foot; E87.0 Hyperosmolality and hypernatremia; T87.44 Infection of amputation stump, left lower extremity; E11.69 Type 2 diabetes mellitus with other specified complication; E11.621 Type 2 diabetes mellitus with foot ulcer; L97.529 Non-pressure chronic ulcer of other part of left foot with unspecified severity; E83.42 Hypomagnesemia; Y83.5 Amputation of limb(s) as the cause of abnormal reaction of the patient, or of later complication, without mention of misadventure at the time of the procedure; Y92.239 Unspecified place in hospital as the place of occurrence of the external cause; L97.519 Non-pressure chronic ulcer of other part of right foot with unspecified severity; E11.42 Type 2 diabetes mellitus with diabetic polyneuropathy; E11.65 Type 2 diabetes mellitus with hyperglycemia; D64.9 Anemia, unspecified; F17.210 Nicotine dependence, cigarettes, uncomplicated; Z68.32 Body mass index [BMI] 32.0-32.9, adult; Z91.14 Patient's other noncompliance with medication regimen; Z79.82 Long term (current) use of aspirin; Z79.84 Long term (current) use of oral hypoglycemic drugs; Z79.899 Other long term (current) drug therapy; Z88.0 Allergy status to penicillin; Z82.49 Family history of ischemic heart disease and other diseases of the circulatory system; Z83.3 Family history of diabetes mellitus
CPT/HCPCS: 10879; 50010; 50101; 50386; 51412; 51771; 53000; 56524; 56525; 56526; 57091; 57180; 62110; 62900; 65090; 70005

== ENCOUNTER 2018-06-15 14:06 | Inpatient (IN) | payer OTHER ==
[~2018-06-15] VITALS: Ht 149.9 cm; Wt 79.4 kg
--- NOTE | ~2018-06-15 | HC ---
[facility] [place] [address] CONSULTATION Name: VAN IBARRA Room #: 513-P ADM IN M.R.#: [id number] Admission: 06/16/18 ������������������ Attend Phys: Titus Garcia MD Discharge: ������������������ Date of : 62 Report #: [id number] THIS REPORT FOR: //name// CC: Titus Garcia [facility] physician/PCP DATE OF SERVICE: 06/17/2018 PERSONAL PHYSICIAN: Titus Garcia MD CHIEF COMPLAINT: Left lower extremity surgical wound. HISTORY OF PRESENT ILLNESS: This is a 58-year-old white female who was recently admitted to the acute rehab unit at [facility] after she underwent a left hkppn-azx-dnsj amputation. We have been following the patient in the acute care side of the hospital for the wound. The patient initially underwent a left nkpct-pym-lhof amputation secondary to osteomyelitis, which was performed on 06/10/2018. This was left open secondary to the massive infection. The patient was taken back to the operating room on 06/12/2018 and had a washout performed. The patient had final closure of the BKA completed on 06/14/2018. Yesterday on 06/16, the patient had the Hemovac drains removed. The patient's surgical dressing is still intact at this time. The patient has been moved down to the rehab floor for further aggressive rehabilitation and strengthening. PAST MEDICAL HISTORY: Significant for diabetes mellitus, peripheral neuropathy and hypertension. CURRENT MEDICATIONS: Multiple, I reviewed the patient's medication list. DRUG ALLERGIES: PENICILLIN. SOCIAL HISTORY: The patient is currently living independently prior to this hospitalization. FAMILY HISTORY: Significant for diabetes and hypertension. REVIEW OF SYSTEMS: CONSTITUTIONAL: The patient denies fever or chills. NEUROLOGIC: The patient complains of peripheral neuropathy, but no headache. EYES: No complaints. ENT: No complaints. CARDIAC: The patient denies chest pain, palpitations, peripheral edema. RESPIRATORY: The patient denies shortness of breath, cough or wheezes. GASTROINTESTINAL: The patient denies nausea, vomiting, abdominal pain. GENITOURINARY: The patient denies urgency or frequency. [facility] [address] [place] [address] CONSULTATION Name: VAN IBARRA Room #: 513-P [facility] IN M.R.#: [id number] Admission: 06/16/18 ������������������ Attend Phys: Titus Garcia MD Discharge: ������������������ Date of : 62 Report #: [id number] MUSCULOSKELETAL: No complaints. SKIN: The patient is now status post left gdbne-wip-amgq amputation. PHYSICAL EXAMINATION: VITAL SIGNS: Temperature 36.8, pulse 73, respirations 17, BP 124/66. GENERAL: This is an alert and oriented x 3, pleasant white female who is in absolutely no distress. HEENT: Normocephalic, atraumatic. Mucous membranes are moist. Pupils are round. Sclerae are white. NECK: Supple, nontender. LUNGS: Clear. HEART: Regular. ABDOMEN: Soft and nontender. EXTREMITIES: The patient moves all extremities without difficulty. Evaluation of left lower extremity reveals a surgical dressing to be in place, which is clean, dry and intact. Right heel is intact. NEUROLOGIC: Cranial nerves 2-12 grossly intact. Motor and sensory grossly intact. LABORATORY DATA: White count 4.9, hemoglobin 7.7. Albumin is 1.5. IMPRESSION: 1. Left akyyq-izo-xpem amputation secondary to acute osteomyelitis. 2. Diabetes mellitus. 3. History of peripheral neuropathy. 4. Protein-calorie malnutrition--severe with albumin of 1.5. 5. Generalized debility. PLAN: At this time, we will leave the surgical dressing in place until tomorrow and remove it. We will write appropriate wound care orders at that point in time. We will continue to maximize the patient's oral protein supplementation for healing. Utilize physical and occupational therapy for strengthening for this patient. We will continue all of her current medications. We will continue to follow the patient. I appreciate the ability to consult. ��������������������������������������������� ���������������������������������������� By: ��������������������������������������������� 1838 1407 Brigido Verdugo MD /nt
--- NOTE | ~2018-06-15 | H ---
[facility] [place] [address] HISTORY AND PHYSICAL Name: VAN IBARRA Room #: 513-P ADM IN M.R.#: [id number] Admission: 06/16/18 ������������������ Attend Phys: Titus Garcia MD Discharge: ������������������ Date of : 62 Report #: [id number] THIS REPORT FOR: //name// CC: Titus Garcia [facility] physician/PCP DATE OF SERVICE: 06/16/2018 HISTORY OF PRESENT ILLNESS: The patient is a 58-year-old white female who was originally admitted to [facility] on 06/09/2018 with a nonhealing left foot ulcer that had started 2 weeks ago after tripping on her dog and causing a scrape. She has premorbid peripheral neuropathy with type 2 diabetes mellitus. She was admitted, diagnosed with acute osteomyelitis. She was taken to the operating room and underwent a left below knee amputation. The wound was not closed due to infection and she then returned to the operating room again on 06/14/2018 for wound inspection, debridement, irrigation and wound closure over the drain. She is being followed by Wound Care as well as Infectious Disease and Internal Medicine. She is noted to have Gram-positive cocci bacteremia strep species and enterococcus in the blood. She has been on the IV antibiotics as per Infectious Disease. She has significant functional mobility and ADL deficits and has now been admitted for acute in-hospital inpatient rehabilitation. PAST MEDICAL HISTORY: Includes hypertension, peripheral neuropathy, diabetes mellitus type 2. FAMILY HISTORY: Diabetes and hypertension. HABITS: There is a history of tobacco abuse. 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 She plans on discharging to her mother and father's house when able. She will 4 stairs to enter and then 7 stairs to her bedroom and bathroom and kitchen as this is a [place] level ranch. She did not utilize any assistive device until the past 3 weeks when she used a quad cane. ALLERGIES: PENICILLIN. REVIEW OF SYSTEMS: No fever or chills. No shortness of breath, chest pain, abdominal discomfort. No dysuria. She has some discomfort of the residual limb as expected, but no other focal extremity pain complaints. She does have distal numbness, which is premorbid of her distal lower extremities. PHYSICAL EXAMINATION: GENERAL: She is a 58-year-old white female, somewhat small statured, no obvious [address] [address] HISTORY AND PHYSICAL Name: VAN IBARRA Room #: 513-P [facility] IN .R.#: [id number] Admission: 06/16/18 ������������������ Attend Phys: Titus Garcia MD Discharge: ������������������ Date of : 62 Report #: [id number] distress, slender build. VITAL SIGNS: Temperature 98.8, pulse 74, respirations 20, blood pressure 136/60. She is alert, follows basic commands without difficulty. HEENT: Facies are symmetric. CHEST: Sounded clear to auscultation. CARDIOVASCULAR: Regular rate and rhythm. ABDOMEN: Bowel sounds positive, nontender. GENITOURINARY AND RECTAL: Deferred. NEUROLOGIC: She has functional range of motion of both upper extremities. Strength is grade 4-/5. DTRs are trace to 1. In her lower extremities, her right lower extremity there is no evidence of skin breakdown. She does have definite decreased sensation to proprioception right large toe. Decreased sensation in a stocking distribution. Tone appeared to be intact. Left lower extremity, she has the below-knee amputation with dressing in place. Functionally, she has been needing assistance with transfers mid to mod assist. She was up short distance mod assist with a front-wheeled walker. ASSESSMENT: A 58-year-old white female with the following problem list: 1. Acute osteomyelitis, status post left below knee amputation on 06/10/2018. 2. Gram-positive cocci bacteremia. 2. Streptococcus species and enterococcus in blood. 3. Premorbid peripheral neuropathy. 4. Diabetes mellitus type 2. 5. Hypertension. 6. Tobacco abuse. 7. Protein-calorie malnutrition. 8. Stairs in the household. PLAN: The patient is admitted for acute in-hospital inpatient rehabilitation. From a post-admission physician evaluation perspective, there are no relevant changes since the preadmission screening. Please see the above review of prior and current medical and functional conditions and comorbidities. Please see the patient's previous and current functional status. As far as risk of complications, the patient has multiple medical comorbidities as noted above. The initial plan of care involves the interdisciplinary acute inpatient rehabilitation program with goal of maximizing her functional independence, so she can hopefully return back to her prior living situation. Measurable functional goals would be for her to become modified independent with transfers, mobility and ADLs at a walker level, so that she can return back to the home setting to be fitted with a prosthesis as an outpatient. Prognosis is reasonably good with estimated length of stay probably at least 10 days to 2 weeks and likely longer. Potential barriers would include her multiple medical comorbidities and decreased functional status. The patient meets diagnostic criteria for an acute in-hospital inpatient rehabilitation stay. She meets the medical necessity criteria and we will have [address] [address] HISTORY AND PHYSICAL Name: VAN IBARRA Room #: 513-P ADM IN M.R.#: [id number] Admission: 06/16/18 ������������������ Attend Phys: Titus Garcia MD Discharge: ������������������ Date of : 62 Report #: [id number] the multiple [employer] product consultant physicians continue to follow. She does have the tolerance for therapies and has appropriate discharge goals back to the home setting. ��������������������������������������������� ���������������������������������������� By: ��������������������������������������������� 1728 1752 Titus Garcia MD /[facility]
--- NOTE | ~2018-06-15 | PLAN ---
[facility] [place] [address] REHAB UNIT PLAN OF CARE Name: VAN IBARRA Room #: 513-P ADM IN M.R.#: [id number] Admission: 06/16/18 ������������������ Attend Phys: Titus Garcia MD Discharge: ������������������ Date of : 62 Report #: [id number] THIS REPORT FOR: //name// CC: Titus Garcia [facility] physician/PCP DATE OF SERVICE: 06/18/2018 PROGRESS NOTE/OVERALL PLAN OF CARE SUBJECTIVE: The patient is seen back today in followup. She is in no distress. Last recorded temperature is 98.1, pulse 78, respirations 18, and blood pressure 125/56. Her below knee amputation is dressed. She is working in therapies with sit to stand, min assist. Gait min assist 6 feet front-wheeled walker. Lower body dressing is max assist, upper body dressing is supervision. ASSESSMENT: 1. Acute osteomyelitis, status post left below knee amputation on 06/10/2018. 2. Gram-positive bacteremia. 3. Streptococcus species and enterococcus in the blood. 4. Premorbid peripheral neuropathy. 5. Diabetes mellitus type 2. 6. Hypertension. 7. Tobacco abuse. 8. Protein-calorie malnutrition. 9. Stairs in the household. PLAN: The overall plan of care is based on the preadmission screen, post-admission physician evaluation and information garnered from therapy assessments. 1. Estimated length of stay is probably at least 10 days to 2 weeks and likely will longer if warranted. 2. Medical prognosis is reasonably good. 3. Anticipated interventions includes the interdisciplinary acute inpatient rehabilitation program with PT and OT, rehab nursing assisting regarding medication management, skin care prophylaxis, bowel and bladder issues and nursing education. Case management is involved as well as the interdisciplinary rehabilitation team. 4. Discharge destination is back to the home setting where she lives with her roommate. Although she notes she is to be going home to her mother and father's house. [facility] [address] [place] [address] REHAB UNIT PLAN OF CARE Name: VAN IBARRA Room #: 513-P [facility] IN ..#: [id number] Admission: 06/16/18 ������������������ Attend Phys: Titus Garcia MD Discharge: ������������������ Date of : 62 Report #: [id number] 5. Expected therapy by discipline includes PT, OT 1-1/2 hours per day each five days a week throughout the duration of the acute inpatient rehabilitation stay. ��������������������������������������������� ���������������������������������������� By: ��������������������������������������������� 0854 0129 Titus Garcia MD /nt
[~2018-06-15 14:06] MED LIST: ASPIR 8181 MG PO; ASPIRIN325 PO; BENADRYL25 MG PO; GEMFIBROZIL 60600 MG PO; GLUCOPHAGE XR500 MG PO; GLUCOTROL5 MG PO; LISINOPRIL10 MG PO; TYLENOL EXTRA500 MG PO
[2018-06-16] MEDS ORDERED: MERREM 500500 MG/12 IV (11:34)
[2018-06-16] MEDS ORDERED: VANCO 750750 MG/150 IV (11:34)
[2018-06-16 16:30] VITALS: BP 136/60
[2018-06-16 17:42] VITALS: BP 136/60
--- NOTE | 2018-06-16 17:43 | NUR ---
PATIENT ADMITTED TO UNIT AT APPROXIMATELY 1645. REPORT GIVEN TO THIS NURSE BY JERRY ON 3W PRIOR TO PATIENT ARRIVING AT THE UNIT. PATIENT IS A&OX4, VITAL SIGNS ARE STABLE. ADMISSION ASSESSMENT PERFORMED, MEDS FAXED TO PHARMACY, CONSULTS CALLED, AND ORDERS PUT INTO COMPUTER. PATIENT ORIENTED TO THE ROOM, FALL EDUCATION GIVEN, AND ADMISSION PAPERWORK SIGNED AND IN CHART. PATIENT FAMILY VISITED IN THE PATIENT ROOM DURING DINNER. PATIENT HAS DRESSING TO THE RIGHT LOWER EXTREMITY WITH BKA, DRESSING IS CLEAN, DRY, AND INTACT. IV TO THE LEFT AC IS WITHOUT S/S OF INFECTION, INFILTRATION, OR EVISCERATION, DRESSING IS CLEAN, DRY, AND INTACT. FALL PRECAUTIONS IN PLACE AND NURSING WILL CONTINUE TO MONITOR PATIENT.
[2018-06-16 19:25] VITALS: BP 134/62
[2018-06-17 04:24] LABS: CALCIUM 8.5 mg/dL (8.5-10.1); CREATININE 0.7 mg/dL (0.6-1.0); POTASSIUM 4.4 mmol/L (3.5-5.1)
[2018-06-17 04:25] LABS: HEMATOCRIT 24.3 % (37.0-47.0); HEMOGLOBIN 7.7 gm/dL (12.0-15.0); MCH 24.5 pg (26.0-34.0); MCHC 31.8 g/dL (28.0-37.0); RBC 3.16 mil/uL (4.20-5.00); RDW 19.9 % (10.5-14.5); WBC 4.9 thou/uL (4.0-11.0)
--- NOTE | 2018-06-17 04:55 | NUR ---
LEFT BKA STUMP COVERED WITH HUGH WRAP WHICH IS CDI. PIVOTING UP TO BSC WITH MIN ASSIST, REACHES WELL FOR ARM OF CHAIR OR BED. LEFT AC SALINE LOCK PATENT FOR ANTIBIOTICS.
--- NOTE | 2018-06-17 07:30 | NUR ---
chart review. pt up working with ot, up in wheel chair. pt is a & o x 3, pleasant and able to make he needs know. intro to cm, transition of care, and team meetings. pt reported " i will be going to my parents house when go home, have 4 steps and full flight stair then everything is on 1 level of home. no dme prior. no hh or rehab before this. live in house with roommate and was independent prior to hospital"/sarabjit. will cont following as needed for dc needs.
[2018-06-17 08:10] VITALS: BP 124/66
[2018-06-17 08:20] LABS: % SATURATION 11 % (20-39); IRON 17 ug/dL (50-170); TIBC 148 ug/dL (250-450)
[2018-06-17 08:49] LABS: FOLIC ACID 3.5 ng/mL (8.6-58.9)
--- NOTE | 2018-06-17 12:43 | NUR ---
Nutrition: Pt admitted for rehab s/p BKA. Seen for consult. Hx of DM. Pt states appetite is good, intake usually 100%. Eats protein foods and vegetables first. Communicated understanding of protein needs for wound healing, protein sources. A1c 16.5, BG 91-235. On carb controlled diet. Requested information on portion sizing, will provide. Low nutrition risk.
--- NOTE | 2018-06-17 15:28 | NUR ---
WOUND CONSULT: PT. WAS SEEN TODAY BY DR. SALVADOR AND MYSELF. PT. IS WELL KNOWN TO THE WOUND CARE TEAM WE WERE FOLLOWING PRIOR TO TRANSFER TO [facility]. PT. HAD HER INITAL LEFT BKA COMPLETED BY DR. EID ON 06/10/18. A WASH OUT WAS DONE IN THE OR ON 06/12/18 AND THE CLOSURE OF THE BKA COMPLETED ON 06/14/18. ON 06/16/18 PT. HEMOVAC DRAINS WERE REMOVED. PT. SURGICAL DRESSING IS STILL C/D/I. PLAN TO REMOVE TOMORROW AND INSPECT SITE. RECOMMENDATIONS: LEAVE SURGICAL DRESSING IN PLACE UNTIL WOUND CARE REMOVES. PT. AND STAFF NURSE WERE INSTRUCTED ON PLAN OF CARE.
--- NOTE | 2018-06-17 16:38 | NUR ---
ASSUMED CARE AT APPROX 0715. PATIENT A/O X4. C/O PAIN AT L BKA SITE. DRESSING TO LEFT BKA C/D/I. MEDICATED FOR PAIN. REQUESTED HALF OF PAIN MED DOSE AT LAST ADMINISTRATION. WOUND CARE ROUNDED ON PATIENT, ORDERS RECEIVED. BLOOD GLUCOSE MONITORED, TREATED PER ORDERS. PATIENT PARTICIPATED IN THERAPY. FALL PRECAUTIONS IN PLACE. LABS REVIEWED BY PROVIDER, ORDERS RECIEVED FOR IRON REPLACEMENT, WILL MONITOR HGB. PATIENT ASYMPTOMATIC. RESTING IN BED, FAMILY AT BEDSIDE. WILL CONTINUE TO MONITOR.
[2018-06-17 19:58] VITALS: BP 125/56
--- NOTE | 2018-06-18 04:12 | NUR ---
PT ASSESSMENT COMPLETED AND VSS. MEDS GIVEN ORDERED AND WELL TOLERATED. FALL PRECAUTIONS IN PLACE. UP TO BSC WITH ASST/GAIT/WALKER. VOIDING LARGE AMOUNT OF YELLOW URINE. IV MEDICATIONS GIVEN AND WELL TOLERATED. PRN PAIN MEDICATION HELPFUL FOR SURGICAL SITE. DSG ON LEFT BKA DRY AND INTACT. SLEEPING WELL. WILL CONTINUE TO MONITOR FREQUENTLY.
[2018-06-18 07:20] VITALS: BP 117/55
--- NOTE | 2018-06-18 09:29 | NUR ---
ASSUMED CARE OF PT AT 0715. PT IS A&OX4. IS ON ROOM AIR. IS STABLE. REPORTS PAIN 2/10 IN LBKA. PT REFUSED PAIN MEDS. ELEVATED STUMP & REPOSITIONED. PT IS UP WITH 1 ASSIST, GB, WALKER STAND PIVOT TO CHAIR & BSC. FALL PRECAUTIONS & HOURLY ROUNDING CONTINUED THIS SHFT. LABS & VITALS REVIEWED. PT IS CURRENTLY WITH PHYSCIAL THERAPY. WILL CONTINUE TO MONITOR.
--- NOTE | 2018-06-18 13:06 | NUR ---
WOUND FOLLOW UP: PT. WAS SEEN TODAY BY DR. SALVADOR AND MYSELF. PT. SUGICAL INCSION WAS CHANGED TODAY PER ORTHO. WE CAN NOW START DAILY AND PRN WOUND CARE TO INCSION SITE. RECOMMENDATIONS: WOUND CARE TO LEFT BKA SITE: GENTLY CLEANSE AREA WITH WOUND CLEANSER OR NORMAL SALINE, COVER WITH XEROFORM, THEN ABD'S, WRAP WITH KERLIX, SECURE WITH HUGH, CHANGE DAILY AND PRN DUE TO SOILAGE. PT. AND STAFF NURSE WERE INSTRUCTED ON PLAN OF CARE.
[2018-06-18 19:34] VITALS: BP 117/50
--- NOTE | 2018-06-19 04:45 | NUR ---
ASSUMED CARE FROM PREVIOUS SHIFT , PT RESTED WELL THROUGHOUT HOURLY ROUNDS, UP TO BSC WITH MIN ASSIST, TOLERATING IV ANTIBIOTICS, DENIES PAIN . RESTED WELL THROUGHOUT HOURLY ROUNDS NO CONCERNS VOICED.
[2018-06-19 08:21] VITALS: BP 112/55
--- NOTE | 2018-06-19 10:34 | NUR ---
ASSUMED CARE OF PT AT 0715. REPORTS SLEPT GOOD. PT IS A&OX4. ABLE TO VOICE HER NEEDS. VSS ON ROOM AIR. LBKA DRESSING C/D/I NO CHANGING UNTIL NEXT THURSDAY PER DR. EID. REPORTS PAIN 4/10 IN LBKA. GAVE PRN TYLENOL. ELEVATED STUMP & REPOSITIONED. PT IS UP WITH 1 ASSIST, GB, WALKER STAND PIVOT TO CHAIR & BSC. RIGHT LEG HAS TIGHT EDEMA, ENCOURAGED PT TO WEAR TEDHOSE AND ELEVATE.FALL PRECAUTIONS & HOURLY ROUNDING CONTINUED THIS SHIFT. PT USES CALL LIGHT APPROPRIATELY. OFFERED SUPPORTIVE CARE. PT HAS BATH AND WASHED HAIR THIS AM, PT FEELS GOOD. HER GOALS ARE TO PARTICIPATE WITH THERAPY TODAY. CONTINUE TO BE ON MEROPEMEN AND VANCOMYCIN IV ABT. IV ON LEFT AC PATENT AND INTACT. REASSESSMENT PER CHART. LABS & VITALS REVIEWED. WILL CONTINUE TO MONITOR.
[2018-06-19 21:15] VITALS: BP 118/56
--- NOTE | 2018-06-20 03:16 | NUR ---
ASSUMED CARE AT START OF SHIFT DISCUSSED PLAN OF CARE AND VERBALIZED UNDERSTANDING AND AGREEABLE, PAIN MEDICATION GIVEN X 2 THIS SHIFT , PT UP TO BSC WITH MIN ASSIST , TOLAERATING ADLS WITH MIN ASSIST. WILL CONINTUE WITH CURRENT PLAN OF CARE AND WILL REPORT CHANGES OR ABNORMAL.
[2018-06-20 07:45] VITALS: BP 116/53
--- NOTE | 2018-06-20 19:52 | NUR ---
ASSUMED CARE AT APPROX 0715. PATIENT A/O X4. VSS. C/O PAIN IN LEFT STUMP. DRESSING CHANGED BY WOUND CARE PHYSICIAN THIS DATE. BLOOD SUGARS MONITORED, MEDS GIVEN PER ORDERS, PATIENT'S BLOOD SUGARS LOW THROUGHOUT SHIFT. HOSPITALIST PHYSICIAN NOTIFIED, ORDERS RECEIVED TO TREAT PER PROTOCOL. PATIENT REPORTED FEELING SHAKY, HAD VISIBLE TREMBLING AT 1150, SUGAR CHECKED AT THAT TIME, BLOOD SUGAR 64. TREATED PER PROTOCOL, TREMBLING RESOLVED, PATIENT REPORTED NO SYMPTOMS OF HYPOGLYCEMIA. EVENING ORAL DIABETIC MEDICATIONS HELD. PATIENT BLOOD SUGAR AFTER DINNER WAS 97, STABLE. IV ANTIBIOTIC MEDICATIONS ADMINISTERED PER ORDERS, PAUSED INFUSION TO ADMINSITER D50 AMP. FALL PRECAUTIONS IN PLACE. PATIENT CALLS APPROPRIATELY FOR ASSISTANCE. PATIENT RESTING IN BED AT CHANGE OF SHIFT.
[2018-06-20 20:52] VITALS: BP 134/67
--- NOTE | 2018-06-21 04:26 | NUR ---
PT ASSESSMENT COMPLETED AND VSS. MEDS GIVEN ORDERED AND WELL TOLERATED. FALL PRECAUTIONS IN PLACE. UP TO THE BSC WITH ASST/GAIT/WALKER. STEADY. L BKA DRSG DRY AND INTACT. PRN PAIN MEDICATION WORKING WELL. NEW IV PLACED BY 4W RN. PT IS A HARD STICK. IV MEDICATION INFUSED ORDERED. SLEEPING WELL. WILL CONTINUE TO MONITOR FREQUENTLY.
[2018-06-21 07:30] VITALS: BP 125/57
--- NOTE | 2018-06-21 12:00 | NUR ---
ASSUMED CARE OF PT AT 0715. REPORTS SLEPT GOOD. PT IS A&OX4. ABLE TO VOICE HER NEEDS. VSS ON ROOM AIR. REPORTS PAIN 8/10 IN LBKA. GAVE PRN TYLENOL AND HYDROCODONE GIVEN. ELEVATED STUMP & REPOSITIONED. PT IS UP WITH 1 ASSIST, GB, WALKER STAND PIVOT TO CHAIR & BSC. FALL PRECAUTIONS & HOURLY ROUNDING CONTINUED THIS SHIFT. PT USES CALL LIGHT APPROPRIATELY. OFFERED SUPPORTIVE CARE. PT HAD SHOWER THIS AM, PT FEELS GOOD. HER GOALS ARE TO PARTICIPATE WITH THERAPY TODAY. IV ON LEFT AC PATENT AND INTACT. REASSESSMENT PER CHART. LABS & VITALS REVIEWED. WILL CONTINUE TO MONITOR.
--- NOTE | 2018-06-21 15:47 | NUR ---
I have reviewed the documentation by MYKE BARRERA from 06/11/18 to 06/21/18 and I concur with it. CHELO ESPARZA
--- NOTE | 2018-06-21 19:40 | NUR ---
WOUND FOLLOW UP: PT. WAS SEEN TODAY BY DR. IYER AND MYSELF. PT. IS IN GOOD SPIRITS SINCE BKA. INCSION IS WELL APPROXIMATED AND PT. IS DOING WELL. RECOMMENDATIONS: CONTINUE WITH CURRENT PLAN OF CARE. PT. AND STAFF NURSE WERE INSTRUCTED ON PLAN OF CARE.
[2018-06-21 19:50] VITALS: BP 127/59
--- NOTE | 2018-06-22 01:51 | NUR ---
PT ASSESSMENT COMPLETED AND VSS. MEDS GIVEN ORDERED AND WELL TOLERATED. FALL PRECAUTIONS IN PLACE. UP TO THE BSC WITH ASST/GAIT/WALKER. STEADY. VOIDING LARGE AMOUNT OF YELLOW URINE. DSG ON L BKA SITE DRY AND INTACT. PRN PAIN MEDICATION WORKING WELL. SLEEPING. WILL CONTINUE TO MONITOR FREQUENTLY.
[2018-06-22 05:33] LABS: ABSOLUTE NEUTROPHILS 1.4 thou/uL (1.4-8.2); BASOPHILS 0.8 % (0.0-2.0); EOSINOPHILS 8.4 % (0.0-3.0); HEMATOCRIT 26.9 % (37.0-47.0); HEMOGLOBIN 8.3 gm/dL (12.0-15.0); LYMPHOCYTES 43.7 % (24.0-44.0); MCH 24.5 pg (26.0-34.0); MCHC 30.9 g/dL (28.0-37.0); MONOCYTES 9.3 % (1.0-8.0); PLATELET COUNT 304 thou/uL (150-400); POLYS 37.8 % (36.0-66.0); RBC 3.41 mil/uL (4.20-5.00); RDW 22.1 % (10.5-14.5); WBC 3.6 thou/uL (4.0-11.0)
[2018-06-22 05:50] LABS: CALCIUM 9.1 mg/dL (8.5-10.1); CREATININE 0.9 mg/dL (0.6-1.0); MAGNESIUM 1.6 mg/dL (1.8-2.4); POTASSIUM 4.1 mmol/L (3.5-5.1)
[2018-06-22 08:23] VITALS: BP 139/56
--- NOTE | 2018-06-22 13:06 | NUR ---
team meeting, recommendation : dc 5/3, dme needs wheel chair, will need to have family education on car transfers, tub transfer bench, and mobility. nursing distribution district supervisor check with pt insurance to see if she has any benefits for needs at dc. no PCP. pt and family training for wound care
--- NOTE | 2018-06-22 15:22 | NUR ---
ASSUMED CARE AT APPROX 0715. PATIENT A/O X4. VSS. LEFT STUMP DRESSING C/D/I. C/O PAIN IN LEFT STUMP, 07/02, STATES PAIN IS TOLERABLE BUT REQUESTED TYLENOL TO PRE-MEDICATE FOR PAIN PRIOR TO THERAPY. BLOOD GLUCOSE MONITORED, METFORMIN GIVEN WITH LUNCH TIME MEAL PER HOSPITALIST GAMBLING CASHIER'S ORDERS. PATIENT PARTICIPATING IN THERAPY. CALLS APPROPRIATELY FOR ASSISTANCE. ADVANCED TO WHITE BELT FALL PRECAUTIONS DURING THE DAY, WILL HAVE NIGHT RN ASSESS IF APPROPRIATE AT NIGHT, YELLOW BELT AT FOR TIME BEING. TEAM CONFERENCE HELD, PLAN IS TO D/C HOME 06/25. WILL CONTINUE DIABETIC EDUCATION WITH PATIENT AND MED MANAGEMENT. WILL CONTINUE TO MONITOR.
--- NOTE | 2018-06-22 15:56 | NUR ---
I have reviewed the documentation by MYKE BARRERA from 06/22/18 to 06/22/18 and I concur with it. CHELO ESPARZA
[2018-06-22 19:05] VITALS: BP 111/50
--- NOTE | 2018-06-23 04:45 | NUR ---
2 HYDROCODONE GIVEN AT HS FOR PAIN = 5/10. BLOOD SUGAR AT THAT TIME = 182. UP TO VOID ON BSC WITH WELL-CONTROLLED PIVOT TRANSFER. DECLINED LAXATIVES DUE TO LARGE STOOL 06/22, DECIDED TO SKIP HS DOSE OF PRINIVIL DUE TO BP = 110/50
[2018-06-23 08:10] VITALS: BP 144/62
--- NOTE | 2018-06-23 10:00 | NUR ---
cm spoke with pt at bedside rt question about her pcp. " i would like to use group here that my parents go to"/sarabjit. pt called her mom and found out that is with dr parisa ford/[facility]. cm team to check and see if group takes pt insurance. per [facility] they do not have contract with pt insurance company. will cont following as needed for dc needs. cm tried x 2 with revisit with pt and she was with therapy or had family visiting.
--- NOTE | 2018-06-23 11:39 | NUR ---
FAXED FACESHEET TO DIAMANTE AT [facility] TO HELP WITH MEDICAIDE APPLICATION., DCP TO FOLLOW.
--- NOTE | 2018-06-23 12:41 | NUR ---
Nutrition: pt seen per followup. Continues to eat 100% of meals. Understands protein needs for wound healing S/P BKA. BG 78-182, improving. On metformin and glipizide. Folate 3.5, on supplement. No wt since 06/16. Basic DM diet information related to portions has been provided at pt request, does not voice further education needs at this time. Encouraged pt to contact RD if questions arise. Low risk.
--- NOTE | 2018-06-23 14:15 | NUR ---
Patient participated in community reintegration on 06/23/18 with Physical Therapy. Refer to documentation by PT.
--- NOTE | 2018-06-23 18:47 | NUR ---
ASSUMED CARE AT APPROX 0715. PATIENT A/O X4. C/O LEFT STUMP PAIN. MEDICATED FOR PAIN. WHITE BELT FALL PRECAUTIONS IN PLACE. PATIENT TRANSFERS X1 SBA. BLOOD GLUCOSE MONITORED STABLE THIS SHIFT, METFORMIN ADMINISTERED PER ORDERS. PARTICIPATED IN THERAPY. DRESSING CHANGED TO LEFT STUMP, INCISION WELL APPROXIMATED. IV DISCONTINUED. PATIENT'S FAMILY DISCUSSED DISCHARGE PLANNING WITH RN. PATIENT RESTING IN BED AT END OF SHIFT. WILL CONTINUE TO MONITOR.
[2018-06-23 19:38] VITALS: BP 113/51
--- NOTE | 2018-06-24 01:30 | NUR ---
PT ALERT AND ORIENTED X 4. UP TO BSC WITH ASSIST X 1. VOIDING ADEQUATE AMTS YELLOW URINE. HAD FORMED STOOL AT HS. LEFT BKA DRESSING C/D/I. PT C/O PAIN IN LEFT LEG. HYDROCODONE GIVEN AT HS WITH ADEQUATE PAIN RELIEF VERBALIZED. BED ALARM ON FOR SAFETY. PT APPEARS TO BE SLEEPING ON HOURLY ROUNDS.
[2018-06-24 08:40] VITALS: BP 119/61
--- NOTE | 2018-06-24 12:13 | NUR ---
I have reviewed the documentation by MYKE BARRERA from 06/24/18 to 06/24/18 and I concur with it. MACKENZIE FRANCIS
--- NOTE | 2018-06-24 13:02 | NUR ---
ASSUMED CARE AT APPROX 0715. REPORTS SLEPT GOOD LAST NIGHT. PATIENT A/O X4. C/O LEFT STUMP PAIN 6/10, PRN TYLENOL GIVEN THIS AM. PT UP WITH CGA OR SBA WITH A WALKER PIVOT TO BATHOOM . BLOOD GLUCOSE 138 THIS AM, METFORMIN ADMINISTERED PER ORDERS PARTICIPATED IN THERAPY. TOOK SHOWER. DRESSING CHANGED TO LEFT STUMP, INCISION WELL APPROXIMATED. WOUND DOCTOR MADE ROUND AND AWARE PT WILL D/C HOME TOMOMORROW. SUGGESTED PT TO CALL [facility]THOPED[facility] WITHIN 2 WEEKS AFTER DISCHARGE. WOUND SUPPLY ORDERS FOR DISCHARGE TOMORROW. PT UP TO DINNING ROOM FOR LUNCH, BACK TO HER ROOM NOW. C/O PAIN 8/10, PRN HYDROCODONE GIVEN. OFFERED SUPPORTIVE CARE. ENCOURAGED PT TO VOICE HER NEEDS. PT MOVED TO 5O1 TODAY AND ENCOURAGED PT TO BE MORE INDEPENDENLY AND READY TO GO HOME TOMORROW. WILL CONTINUE TO MONITOR.
--- NOTE | 2018-06-24 13:16 | NUR ---
pt wanted to discuss transportation home, " going to need help getting up the stair for 1st time and then if need ride somewhere, who can call?"/sarabjit. education on medical transport, ie wheel chair assistance with transport " i will just goggle them"sarabjit. provided 1st class transportation and pricing would have to come from company rt different for how far have to drive " ok thanks"/sarabjit.
--- NOTE | 2018-06-24 14:14 | NUR ---
WOUND FOLLOW UP: PT. WAS SEEN TODAY BY DR. IYER AND MYSELF. PT. SURGICAL INCISION IS WELL APPROXIMATED AND THE SITE IS HEALING WELL. PT. IS SCHEDULED TO DISCHARGE TOMORROW SO, DISCHARGE PLANNING WAS DISCUSSED. RECOMMENDATIONS: CONTINUE WITH CURRENT PLAN OF CARE. PT. AND STAFF NURSE WERE INSTRUCTED ON PLAN OF CARE.
--- NOTE | 2018-06-24 15:25 | NUR ---
PT. DISCHARGING TO PARENT'S HOME TOMORROW 06/25 [facility] WILL PICK PT. UP [id number] KWAME.
[2018-06-24 20:06] VITALS: BP 132/63
--- NOTE | 2018-06-25 01:59 | NUR ---
PT ALERT AND ORIENTED X 4. UP TO BSC WITH ASSIST X 1 WITHOUT DIFFICULTY. LEFT BKA DRESSING C/D/I. PT C/O PAIN IN LEFT LEG. HYDROCODONE GIVEN X 1 AND PT SLEEPING UPON REASSESSMENT. BED ALARM ON FOR SAFETY. PT APPEARS TO BE SLEEPING ON HOURLY ROUNDS.
[2018-06-25] MEDS ORDERED: PEPCID20 MG PO (07:26)
[2018-06-25] MEDS ORDERED: IRON325 PO (07:26)
[2018-06-25] MEDS ORDERED: GEMFIBROZIL 60600 MG PO (07:26)
[2018-06-25] MEDS ORDERED: GLUCOPHAGE XR750 MG PO (07:26)
[2018-06-25] MEDS ORDERED: PROBIOTIC1 EAC1 PO (07:26)
[2018-06-25] MEDS ORDERED: VITAMIN B-12500 MCG PO (07:26)
[2018-06-25] MEDS ORDERED: ASPIR 8181 MG PO (07:26)
[2018-06-25] MEDS ORDERED: FOLIC ACID1 MG PO (07:26)
[2018-06-25] MEDS ORDERED: LISINOPRIL10 MG PO (07:26)
[2018-06-25] MEDS ORDERED: NORCO 5-325 TA1 EACH PO (07:27)
[2018-06-25 07:30] VITALS: BP 118/72
[2018-06-25 10:46] VITALS: BP 132/63
--- NOTE | 2018-06-25 10:48 | NUR ---
PT. DISCHARGING TODAY TO HOME WITH [facility]. [facility] WILL DO SRIRAM VISITS 2 NURSING AND 1 PHYSICAL THERAPY VISIT. MICKY FROM [facility] WILL NOTIFY PT.TIME OF VISITS.
--- NOTE | 2018-06-25 11:00 | NUR ---
REASSUME PT CARE AT 0700.VSS ON RA. REPORTS HAD GOOD SLEEP AND READY TO BE DISCHARGE TODAY. PT IS MOD I IN ROOM WITH WC AND WALKER TODAY AND DID WELL. BS 150. METFORMIN AND MORNING MEDS GIVEN. ATE 100% BREAKFAST. REASSESSMENT PER CHART. HAD BM TODAY. OFFERED SUPPORTIVE CARE. ENCOURAGED PT TO VOICE HER NEEDS. DISCHARGE MEDS PRESCRIPTIONS, INSTRUCTION AND WOUND CARE SUPPLY GIVEN. DEMONSTRATED WOUND DRESSING JULIO WITH PT'S MOTHER. NO FUTHER QUESTION AT THIS MOMENT. MAIL CLERK INFORMATION GIVEN AND H&P AND DISCHARGE SUMMARY PRINT OUT AND PUT IN FOLDER PER CM SUGGESTED SINCE PT WILL HAVE TO FIND NEW PCP WHO WILL TAKE HER INSURANCE. ALL PT'S BELONGING SENT WITH PT'S FAMILY. PT IS WAITING FOR TRANSPORTATION WC VAN AT THIS MOMENT IN ROOM. WILL CONTINUE TO MONITOR.
--- NOTE | 2018-06-25 15:12 | NUR ---
cm visited with pt this am about found pcp and that chcs would make few jonah visit at home and needs pcp for follow up with rt medication offered santana. "i will just use website when get home on who in with my insurance"/sarabjit. sen cont to try get pt started with pcp office. unable to go see her previous dr rt not take pt insurance. called [facility] [phone], transportation line [phone]. left message to see if in net work with pt insurance. sen called left pt message letting her know not found clinic yet that takes her insurance [facility].
--- NOTE | 2018-06-26 15:28 | HC ---
[facility] [place] [address] CONSULTATION Name: VAN IBARRA Room #: 501-A [facility] IN M.R.#: [id number] Admission: 06/16/18 ������������������ Attend Phys: Titus Garcia MD Discharge: 06/25/18 ������������������ Date of : 62 Report #: [id number] THIS REPORT FOR: //name// CC: Titus Garcia FAM physician/PCP DATE OF SERVICE: 06/19/2018 ATTENDING PHYSICIAN: Titus Garcia MD CLINICAL PRESENTATION: The patient is a 58-year-old female admitted to the [facility] initially for nonhealing left foot ulcer that started 2 weeks ago after tripping on her dog causing a scrape. She has a premorbid history of peripheral neuropathy with type 2 diabetes mellitus. From her foot ulcer she was diagnosed with an acute osteomyelitis and underwent a left jhgxr-aet-umze amputation. Additionally, she was found to have a gram-positive bacteremia strep species in her blood and had been on IV antibiotics. Her diagnostic assessment on admission to rehab includes acute osteomyelitis status post left ajsui-ahz-cfel amputation, gram-positive cocci bacteremia, streptococcus species and enterococcus in blood, premorbid peripheral neuropathy, diabetes mellitus type 2, hypertension, tobacco abuse, protein-calorie malnutrition. A complete description of her medical condition and history along with medications can be found in her medical record. Neuropsychological consultation was requested to provide assistance in the assessment of cognitive and emotional status and to provide recommendations and services. Prior to this most recent admission, she was living independently in her own home. 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 Her job required her to walk and climb ladders. She does not present with aphasia. Her thoughts are logical and goal oriented. There is no evidence of thought disorder. She does not report auditory or visual hallucinations. She does not report anxiety, depression, difficulty with sleep, appetite, memory or word finding. There is no history of treatment for mood or behavior disorder and she denies a history of alcohol or drug abuse. The patient has no children as she is not . She has 2 brothers. TECHNIQUES UTILIZED: Clinical interview, review of medical records, staff consultation and behavioral observation, mini mental status exam 2 standard version, clock drawing and verbal fluency assessment (letter and category). EXAMINATION FINDINGS: As indicated, the patient does not report problems with cognition, mood or behavior. She is likely to lack insight into aspects of cognitive disorder. Her performance on the MMSE 2 brief version was within [address] [address] CONSULTATION Name: VAN IBARRA Room #: 501-A [facility] IN [facility].#: [id number] Admission: 06/16/18 ������������������ Attend Phys: Titus Garcia MD Discharge: 06/25/18 ������������������ Date of : 62 Report #: [id number] normal limits with a raw score of 16 of 16. Performance on the MMSE 2 standard version is within normal limits with a raw score of 28/30. The areas of decreased functioning were noted in serial sevens, subtle difficulty with copying a simple geometric design. Neurocognitive deficits are primarily noted in verbal fluency. Letter fluency was extremely low with a raw score of 15, T score of 28, percentile rank of 1. Category fluency was in the borderline range with a T score of 31, percentile rank of 3. Overall verbal fluency was extremely low with a T score of 26 and percentile rank of 1. The patient is alert and oriented. Deficits are primarily in verbal fluency, which likely suggests variability in cognitive functioning. Clock drawing is within normal limits. 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 RECOMMENDATIONS: The patient will likely require assistance with higher level executive functioning including organization, planning and problem solving. Upon discharge, she is planning to move in with her family and family education as to her limitations and deficits is indicated. Assistance in management of medication may initially be necessary. Family should further assess her ability to live independently as she recovers from this most recent medical event. Educational information in regard to diabetes and medication management. Thank you very much for allowing me to provide the consultation on this patient. ��������������������������������������������� <ELECTRONICALLY SIGNED> ���������������������������������������� By: Azael Sanchez, PhD ��������������������������������������������� 06/26/18 1528 [id number] Azael Sanchez, PhD /nt
== END 2018-06-25 11:33 | disposition home health service (06) | DRG 637 ==
PROVIDERS: Nurse Practitioner; ADMIT Physical Medicine & Rehabilitation
DX: E11.69 Type 2 diabetes mellitus with other specified complication (principal); E43 Unspecified severe protein-calorie malnutrition; M86.18 Other acute osteomyelitis, other site; E11.51 Type 2 diabetes mellitus with diabetic peripheral angiopathy without gangrene; R53.81 Other malaise; I10 Essential (primary) hypertension; E11.42 Type 2 diabetes mellitus with diabetic polyneuropathy; G31.84 Mild cognitive impairment of uncertain or unknown etiology; R26.9 Unspecified abnormalities of gait and mobility; E53.8 Deficiency of other specified B group vitamins; E11.621 Type 2 diabetes mellitus with foot ulcer; L97.519 Non-pressure chronic ulcer of other part of right foot with unspecified severity; B95.2 Enterococcus as the cause of diseases classified elsewhere; B95.4 Other streptococcus as the cause of diseases classified elsewhere; E11.65 Type 2 diabetes mellitus with hyperglycemia; Z68.35 Body mass index [BMI] 35.0-35.9, adult; Z83.3 Family history of diabetes mellitus; Z82.49 Family history of ischemic heart disease and other diseases of the circulatory system; Z88.0 Allergy status to penicillin; Z72.0 Tobacco use
CPT/HCPCS: 10112